=== PATIENT | female | born 1985 ===

== ENCOUNTER 2020-09-22 02:23 | Emergency (ER) | payer BC ==
--- NOTE | 2020-09-22 05:21 | ER ---
Nurse's Notes [facility] Name: Olena Hilliard Age: 35 yrs Sex: Female : 1985 Arrival Date: 09/22/2020 Time: 02:33 Bed 17 Private MD: Diagnosis: Unspecified otitis externa, left ear Presentation: 09/22 03:15 Chief complaint: Patient states: "I think I have an ear infection, it started to hurt a lp1 day ago and now its swollen" Denies fever, or drainage from ear. Coronavirus screen: Client denies travel out of the [place] in the last 14 days. Ebola Screen: Patient denies travel to an Ebola-affected area in the 21 days before illness onset. Initial Sepsis Screen: Does the patient meet any 2 criteria? No. Patient's initial sepsis screen is negative. Does the patient have a suspected source of infection? No. Patient's initial sepsis screen is negative. Risk Assessment: Do you want to hurt yourself or someone else? Patient reports no desire to harm self or others. Onset of symptoms was August 2020. 03:15 Method Of Arrival: Ambulatory lp1 03:15 Acuity: JARETT 4 lp1 Triage Assessment: 03:16 General: Appears in no apparent distress. comfortable, Behavior is calm, cooperative, lp1 appropriate for age. Pain: Complains of pain in left ear Pain does not radiate. Pain currently is 4 out of 10 on a pain scale. EENT: Reports ear pain. Neuro: Level of Consciousness is awake, alert, obeys commands, Oriented to person, place, time, situation, Speech is normal. Cardiovascular: Patient's skin is warm and dry. Respiratory: Airway is patent Respiratory effort is even, unlabored, Respiratory pattern is regular, symmetrical. 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 - Social history:: Smoking status: Patient denies any tobacco usage or history of. Screenin:47 Abuse screen: Denies threats or abuse. Denies injuries from another. Nutritional lp1 screening: No deficits noted. Tuberculosis screening: No symptoms or risk factors identified. Fall Risk None identified. Assessment: 05:47 General: Appears in no apparent distress. Behavior is calm, cooperative, appropriate lp1 for age. Pain: Complains of pain in left ear. Neuro: No deficits noted. Cardiovascular: No deficits noted. Respiratory: No deficits noted. GI: No signs and/or symptoms were reported involving the gastrointestinal system. : No signs and/or symptoms were reported regarding the genitourinary system. EENT: Reports pain in left ear. Derm: Skin is pink, warm \\T\\ dry. Musculoskeletal: No deficits noted. Vital Signs: 03:15 BP 137 / 84; Pulse 76; Resp 18; Temp 97.5; Pulse Ox 98% on R/A; Weight 86.18 kg (R); lp1 Height 5 ft. 5 in. (165.10 cm) (R); Pain 4/10; 03:15 Body Mass Index 31.62 (86.18 kg, 165.10 cm) lp1 ED Course: 02:33 Patient arrived in ED. bp1 03:16 Triage completed. lp1 03:16 Arm band placed on Patient placed in waiting room, Patient notified of wait time. lp1 04:34 Douglas Martines MD is Attending Physician. mh7 05:20 Deanne Darby MD is Referral Physician. 7 05:32 Isaura Resendiz RN is Primary Nurse. lp1 05:47 Patient has correct armband on for positive identification. lp1 05:47 No provider procedures requiring assistance completed. Patient did not have IV access lp1 during this emergency room visit. Administered Medications: 05:41 Drug: Tylenol 1000 mg Route: PO; lp1 05:48 Follow up: Response: Medication administered at discharge. lp1 Outcome: 05:21 Discharge ordered by . mh7 05:47 Discharged to home ambulatory. lp1 05:47 Condition: good 05:47 Discharge instructions given to patient, Instructed on discharge instructions, follow up and referral plans. medication usage, Demonstrated understanding of instructions, follow-up care, medications, Prescriptions given X 3. 05:48 Patient left the ED. lp1 Signatures: Isaura Resendiz RN RN lp1 Kristie Ledesma Maurice, MD MD 7
--- NOTE | 2020-09-22 05:21 | EDPHYS ---
Physician Documentation [facility] Name: Olena Hilliard Age: 35 yrs Sex: Female : 1985 Arrival Date: 09/22/2020 Time: 02:33 Bed 17 Private MD: ED Physician Douglas Martines HPI: 09/22 05:05 This 35 yrs old Female presents to ER via Ambulatory with complaints of Ear Pain. mh7 05:05 The patient presents with pain, moderate. The complaints affect the left ear. mh7 05:05 Onset: The symptoms/episode began/occurred yesterday. mh7 05:05 Modifying factors: The symptoms are alleviated by nothing, the symptoms are aggravated mh7 by nothing. Associated signs and symptoms: Pertinent negatives: cough, fever, lightheadedness, nausea, rhinorrhea, sinus trouble, shortness of breath, sore throat, tinnitus, vertigo, vomiting. Severity of symptoms: At their worst the symptoms were moderate yesterday, in the emergency department the symptoms have improved moderately. 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 - Social history:: Smoking status: Patient denies any tobacco usage or history of. ROS: 05:05 Constitutional: Negative for fever, chills, and weight loss, Eyes: Negative for injury, mh7 pain, redness, and discharge, Neck: Negative for injury, pain, and swelling, Cardiovascular: Negative for chest pain, palpitations, and edema, Respiratory: Negative for shortness of breath, cough, wheezing, and pleuritic chest pain, Abdomen/GI: Negative for abdominal pain, nausea, vomiting, diarrhea, and constipation, Back: Negative for injury and pain, : Negative for injury, bleeding, discharge, and swelling, MS/Extremity: Negative for injury and deformity, Skin: Negative for injury, rash, and discoloration, Neuro: Negative for headache, weakness, numbness, tingling, and seizure, Psych: Negative for depression, anxiety, suicide ideation, homicidal ideation, and hallucinations, Allergy/Immunology: Negative for hives, rash, and allergies, Endocrine: Negative for neck swelling, polydipsia, polyuria, polyphagia, and marked weight changes, Hematologic/Lymphatic: Negative for swollen nodes, abnormal bleeding, and unusual bruising. Exam: 05:05 Constitutional: This is a well developed, well nourished patient who is awake, alert, mh7 and in no acute distress. Head/Face: Normocephalic, atraumatic. Eyes: Pupils equal round and reactive to light, extra-ocular motions intact. Lids and lashes normal. Conjunctiva and sclera are non-icteric and not injected. Cornea within normal limits. Periorbital areas with no swelling, redness, or edema. 05:05 Neck: Trachea midline, no thyromegaly or masses palpated, and no cervical lymphadenopathy. Supple, full range of motion without nuchal rigidity, or vertebral point tenderness. No Meningismus. Chest/axilla: Normal chest wall appearance and motion. Nontender with no deformity. No lesions are appreciated. Cardiovascular: Regular rate and rhythm with a normal S1 and S2. No gallops, murmurs, or rubs. Normal PMI, no JVD. No pulse deficits. Respiratory: Lungs have equal breath sounds bilaterally, clear to auscultation and percussion. No rales, rhonchi or wheezes noted. No increased work of breathing, no retractions or nasal flaring. Abdomen/GI: Soft, non-tender, with normal bowel sounds. No distension or tympany. No guarding or rebound. No evidence of tenderness throughout. Back: No spinal tenderness. No costovertebral tenderness. Full range of motion. Skin: Warm, dry with normal turgor. Normal color with no rashes, no lesions, and no evidence of cellulitis. MS/ Extremity: Pulses equal, no cyanosis. Neurovascular intact. Full, normal range of motion. Neuro: Awake and alert, GCS 15, oriented to person, place, time, and situation. Cranial nerves II-XII grossly intact. Motor strength 5/5 in all extremities. Sensory grossly intact. Cerebellar exam normal. Normal gait. Psych: Awake, alert, with orientation to person, place and time. Behavior, mood, and affect are within normal limits. 05:05 ENT: External ear(s): are unremarkable, Ear canal(s): abscess, is not appreciated, bleeding, is not appreciated, bloody discharge, is not appreciated, cerumen impaction, is not appreciated, erythema, is not appreciated, foreign body, is not appreciated, purulent discharge, that is minimal, in the left canal, swelling, that is moderate, of the left canal, TM's: not visable, because of discharge, Examination of the other ear shows no obvious abnormality, Nose: is normal. Vital Signs: 03:15 BP 137 / 84; Pulse 76; Resp 18; Temp 97.5; Pulse Ox 98% on R/A; Weight 86.18 kg (R); lp1 Height 5 ft. 5 in. (165.10 cm) (R); Pain 4/10; 03:15 Body Mass Index 31.62 (86.18 kg, 165.10 cm) lp1 MDM: 05:05 Differential diagnosis: otitis media, otitis externa, ruptured TM, foreign body, acute mh7 otalgia, cerumen impaction, barotrauma , serotympanum. Data reviewed: vital signs, nurses notes. Counseling: I had a detailed discussion with the patient and/or guardian regarding: the historical points, exam findings, and any diagnostic results supporting the discharge/admit diagnosis, the need for outpatient follow up, an ENT specialist, to return to the emergency department if symptoms worsen or persist or if there are any questions or concerns that arise at home. 05:21 Patient medically screened. [facility] Administered Medications: 05:41 Drug: Tylenol 1000 mg Route: PO; lp1 05:48 Follow up: Response: Medication administered at discharge. lp1 Disposition Summary: 09/22/20 05:21 Discharge Ordered Location: Home [facility] Problem: new 7 Symptoms: have improved mh7 Condition: Stable mh7 Diagnosis - Unspecified otitis externa, left ear 7 Followup: 7 - With: Private Physician - When: 1 - 2 days - Reason: Worsening of condition, Recheck today's complaints, Continuance of care, Re-evaluation by your physician Followup: 7 - With: Deanne Darby MD - When: 2 - 3 days - Reason: Worsening of condition, Recheck today's complaints Discharge Instructions: - Discharge Summary Sheet [facility] - Otitis Externa, [id number] [facility] Forms: - Medication Reconciliation Form [facility] - Thank You Letter [facility] - Antibiotic Education [facility] - Prescription Opioid Use [facility] Prescriptions: - Amoxicillin 500 mg Oral Capsule - take 1 capsule by ORAL route every 8 hours for 10 days; 30 tablet; Refills: 0, [facility] Product Selection Permitted - Cortisporin-TC 3.3-3-10-0.5 mg/mL Otic Suspension - instill 4 drops by OTIC route every 6 hours; 1 bottle; Refills: 0, Product [facility] Selection Permitted - Ibuprofen 800 mg Oral Tablet - take 1 tablet by ORAL route every 8 hours As needed take with food; 15 tablet; [facility] Refills: 0, Product Selection Permitted Signatures: Isaura Resendiz RN RN lp1 Douglas Martines MD MD [facility]
[2020-09-22 05:57] VITALS: BP 137/84; TEMP 97.5; O2SAT 98
[2020-09-22] MEDS ORDERED: ACETAMINOPHEN 500 MG TAB ONE (05:58)
== END 2020-09-22 05:48 | disposition home or self-care (01) ==
LOC: ER 02:23
DX: H60.92 Unspecified otitis externa, left ear (principal)
CPT/HCPCS: 99283